=== PATIENT | female | born 1940 | race Caucasian/White ===

== ENCOUNTER 2016-09-14 13:19 | Emergency (ER) | payer OTHER ==
[~2016-09-14] VITALS: Ht 157.5 cm; Wt 61.7 kg
[~2016-09-14 13:19] MED LIST: BENAZEPRIL HYDR20 M1 PO; FOS10 PO; GOOD SENSE ASPI81 M3 PO; LEVAQUIN750 MG PO; LEVOTHROID PO; LEVOTHYROXINE0.1 M2 PO; LIPI10 PO; LOT10 PO; LOTENSIN10 MG PO; MEDDP PO; SIMVASTATIN20 M1 PO
[2016-09-14 15:18] LABS: BASOPHIL % 0.5 % (0-2); PLATELET COUNT 209 x10^3mcL (130-400)
[2016-09-14 15:20] LABS: RED CELL DISTRIBUTION WIDTH 14.8 % (11.5-14.5)
[2016-09-14 15:24] LABS: microscopic required? YES; urine erythrocyte TRACE (NEGATIVE)
[2016-09-14 15:27] LABS: CALCIUM 8.9 mg/dL (8.5-10.1); CARBON DIOXIDE 32.5 mmol/L (21-32); CHLORIDE SERUM 101 mmol/L (98-107); CREATININE SERUM 0.7 mg/dL (0.6-1.0); GLUCOSE SERUM 84 mg/dL (74-106); POTASSIUM SERUM 4.7 mmol/L (3.5-5.1); SODIUM SERUM 138 mmol/L (136-145)
[2016-09-14 15:38] LABS: ALBUMIN 3.6 g/dL (3.4-5.0); ALKALINE PHOSPHATASE 79 U/L (46-116); ALT/SGPT 13 U/L (14-59); AST/SGOT 15 U/L (15-37); BILIRUBIN TOTAL 0.29 mg/dL (0.20-1.00); TOTAL PROTEIN, SERUM 7.1 g/dL (6.4-8.2)
[2016-09-14 15:43] LABS: CK-MB < 0.5 ng/mL (0-3.6); CREATINE KINASE 66 U/L (26-192)
[2016-09-14 17:35] VITALS: BP 135/88
== END 2016-09-14 17:35 | disposition home or self-care (01) ==
LOC: ED 13:19
PROVIDERS: Emergency Medicine
DX: E03.9 Hypothyroidism, unspecified (principal); E78.00 Pure hypercholesterolemia, unspecified; I10 Essential (primary) hypertension; E07.9 Disorder of thyroid, unspecified; Z88.5 Allergy status to narcotic agent; Z79.899 Other long term (current) drug therapy
CPT/HCPCS: 83880; Q0092

== ENCOUNTER 2016-10-26 13:43 | Emergency (ER) | payer OTHER ==
[~2016-10-26] VITALS: Ht 149.9 cm; Wt 61.0 kg
[2016-10-26 16:35] LABS: UA SPECIFIC GRAVITY <=1.005 (1.005-1.035); microscopic required? YES; urine erythrocyte TRACE (NEGATIVE)
[2016-10-26 16:36] LABS: BASOPHIL % 0.4 % (0-2); PLATELET COUNT 189 x10^3mcL (130-400)
[2016-10-26 16:43] LABS: CALCIUM 9.1 mg/dL (8.5-10.1); CARBON DIOXIDE 31.1 mmol/L (21-32); CHLORIDE SERUM 97 mmol/L (98-107); CREATININE SERUM 0.7 mg/dL (0.6-1.0); GLUCOSE SERUM 98 mg/dL (74-106); POTASSIUM SERUM 4.3 mmol/L (3.5-5.1); SODIUM SERUM 134 mmol/L (136-145)
[2016-10-26 16:46] LABS: RED CELL DISTRIBUTION WIDTH 15.6 % (11.5-14.5)
[2016-10-26 16:56] LABS: ALBUMIN 3.4 g/dL (3.4-5.0); ALKALINE PHOSPHATASE 74 U/L (46-116); ALT/SGPT 17 U/L (14-59); AST/SGOT 20 U/L (15-37); BILIRUBIN TOTAL 0.37 mg/dL (0.20-1.00); LIPASE 173 IU/L (73-393); T4(THYROXINE) 11.6 ug/dL (4.7-13.3); TOTAL PROTEIN, SERUM 7.2 g/dL (6.4-8.2)
[2016-10-26 17:08] LABS: CK-MB 0.7 ng/mL (0-3.6)
[2016-10-26 17:34] VITALS: BP 116/60
== END 2016-10-26 18:15 | disposition home or self-care (01) ==
LOC: ED 13:43
PROVIDERS: Emergency Medicine
DX: R53.1 Weakness (principal); R31.29 Other microscopic hematuria; E03.9 Hypothyroidism, unspecified; I10 Essential (primary) hypertension; E78.00 Pure hypercholesterolemia, unspecified
CPT/HCPCS: J7613; J7644; Q0092

== ENCOUNTER 2017-04-01 18:40 | Observation (INO) | payer OTHER ==
[~2017-04-01] VITALS: Ht 149.9 cm; Wt 59.9 kg
[2017-04-01] MEDS ORDERED: LEVOTHYROXIN0.075 M2 PO (19:16)
[2017-04-01] MEDS ORDERED: BENAZEPRIL HYDR20 M1 PO (19:16)
[2017-04-01] MEDS ORDERED: LEVOXYL0.088 MG PO (19:16)
[2017-04-01] MEDS ORDERED: SIMVASTATIN20 M1 PO (19:17)
[2017-04-01] MEDS ORDERED: ATIVAN1 MG PO (19:17)
[2017-04-01 19:36] LABS: UA SPECIFIC GRAVITY <=1.005 (1.005-1.035); microscopic required? YES; urine erythrocyte TRACE (NEGATIVE)
[2017-04-01 19:50] LABS: BASOPHIL % 0.4 % (0-2); PLATELET COUNT 216 x10^3mcL (130-400)
[2017-04-01 19:51] LABS: RED CELL DISTRIBUTION WIDTH 16.7 % (11.5-14.5)
[2017-04-01 19:59] LABS: CALCIUM 9.1 mg/dL (8.5-10.1); CARBON DIOXIDE 29.8 mmol/L (21-32); CHLORIDE SERUM 92 mmol/L (98-107); CREATININE SERUM 0.7 mg/dL (0.6-1.0); GLUCOSE SERUM 135 mg/dL (74-106); POTASSIUM SERUM 3.9 mmol/L (3.5-5.1); SODIUM SERUM 131 mmol/L (136-145)
[2017-04-01 20:05] LABS: ALBUMIN 3.7 g/dL (3.4-5.0); ALKALINE PHOSPHATASE 92 U/L (46-116); ALT/SGPT 15 U/L (14-59); AST/SGOT 20 U/L (15-37); BILIRUBIN TOTAL 0.3 mg/dL (0.20-1.00); TOTAL PROTEIN, SERUM 8.2 g/dL (6.4-8.2)
[2017-04-01 21:42] VITALS: BP 155/86
[2017-04-01 21:45] VITALS: Ht 149.9 cm; Wt 59.9 kg
[2017-04-01 21:49] LABS: AMPHETAMINE QUAL UR NONE DETECTED (NEG <=1000)
[2017-04-01 21:53] LABS: MAGNESIUM 1.8 mg/dL (1.8-2.4)
[2017-04-01 21:57] LABS: T3 TOTAL 0.97 ng/mL
[2017-04-01 22:01] LABS: FREE T4 1.11 ng/dL (0.76-1.46); FREE THYROXINE INDEX 3.6 ug/dL (1.4-4.5); T4(THYROXINE) 11.9 ug/dL (4.7-13.3)
[2017-04-02 04:53] VITALS: BP 138/68
[2017-04-02 08:45] VITALS: BP 106/64
[2017-04-02] MEDS ORDERED: LAC PO (10:59)
[2017-04-02] MEDS ORDERED: LEVOFLOXACIN500 M1 PO (11:02)
[2017-04-02 12:37] VITALS: BP 106/64
[2017-04-02 13:02] VITALS: BP 106/69
[2017-04-02] MEDS ORDERED: PYRIDIUM100 MG PO (14:35)
== END 2017-04-02 15:11 | disposition home or self-care (01) | DRG 690 ==
LOC: ED 18:40 → DU 20:53
PROVIDERS: Emergency Medicine; Student in an Organized Health Care Education/Training Program; ADMIT Family Medicine Sports Medicine
DX: N39.0 Urinary tract infection, site not specified (principal); E87.1 Hypo-osmolality and hyponatremia; B96.20 Unspecified Escherichia coli [E. coli] as the cause of diseases classified elsewhere; R31.9 Hematuria, unspecified; I16.0 Hypertensive urgency; I10 Essential (primary) hypertension; K44.9 Diaphragmatic hernia without obstruction or gangrene; F41.9 Anxiety disorder, unspecified; E78.5 Hyperlipidemia, unspecified; E03.9 Hypothyroidism, unspecified; Z16.24 Resistance to multiple antibiotics
CPT/HCPCS: 83880; 84439; 94150; G0378; J0696; J1885; J2405; J3490; J7030; Q0092

== ENCOUNTER 2017-07-15 17:31 | Emergency (ER) | payer OTHER ==
[~2017-07-15] VITALS: Ht 149.9 cm; Wt 59.9 kg
[~2017-07-15 17:31] MED LIST changes: +ATIVAN1 MG PO; +LAC PO; +LEVOFLOXACIN500 M1 PO; +LEVOTHYROXIN0.075 M2 PO; +LEVOXYL0.088 MG PO; +PYRIDIUM100 MG PO
[2017-07-15 17:34] VITALS: Ht 149.9 cm; Wt 59.9 kg
[2017-07-15 20:07] VITALS: BP 133/76
== END 2017-07-15 20:07 | disposition home or self-care (01) ==
LOC: ED 17:31
DX: S93.401A Sprain of unspecified ligament of right ankle, initial encounter (principal); S40.011A Contusion of right shoulder, initial encounter; E05.80 Other thyrotoxicosis without thyrotoxic crisis or storm; I10 Essential (primary) hypertension; E78.00 Pure hypercholesterolemia, unspecified; Z88.5 Allergy status to narcotic agent; X50.1XXA Overexertion from prolonged static or awkward postures, initial encounter; Y93.89 Activity, other specified; Y92.89 Other specified places as the place of occurrence of the external cause; Y99.8 Other external cause status
CPT/HCPCS: J1885

== ENCOUNTER 2018-01-15 13:33 | Emergency (ER) | payer OTHER ==
[~2018-01-15] VITALS: Ht 149.9 cm; Wt 58.5 kg
[2018-01-15 13:49] VITALS: Ht 149.9 cm; Wt 58.5 kg
== END 2018-01-15 14:25 | disposition home or self-care (01) ==
LOC: ED 13:33
DX: B08.1 Molluscum contagiosum (principal); I10 Essential (primary) hypertension; E78.00 Pure hypercholesterolemia, unspecified

== ENCOUNTER 2018-02-21 10:44 | Observation (INO) | payer OTHER ==
[~2018-02-21] VITALS: Ht 149.9 cm; Wt 56.5 kg
[2018-02-21 11:48] LABS: BASOPHIL % 0.8 % (0-2); PLATELET COUNT 210 x10^3mcL (130-400); RED CELL DISTRIBUTION WIDTH 14.3 % (11.5-14.5)
[2018-02-21 11:59] LABS: CALCIUM 9.6 mg/dL (8.5-10.1); CARBON DIOXIDE 27.9 mmol/L (21-32); CHLORIDE SERUM 101 mmol/L (98-107); CREATININE SERUM 0.7 mg/dL (0.6-1.0); GLUCOSE SERUM 123 mg/dL (74-106); POTASSIUM SERUM 4.3 mmol/L (3.5-5.1); SODIUM SERUM 139 mmol/L (136-145)
[2018-02-21] MEDS ORDERED: SYNTHROID0.075 MG PO (13:17)
[2018-02-21] MEDS ORDERED: SYNTHROID0.088 MG PO (13:18)
[2018-02-21] MEDS ORDERED: AMLODIPINE BES2.5 M1 PO (13:18)
[2018-02-21 13:55] VITALS: BP 158/79
[2018-02-21 17:11] VITALS: BP 134/91
[2018-02-21 21:02] VITALS: BP 114/60
[2018-02-22 05:45] VITALS: BP 130/68
[2018-02-22 06:10] LABS: BASOPHIL % 0.6 % (0-2); PLATELET COUNT 197 x10^3mcL (130-400); RED CELL DISTRIBUTION WIDTH 14.4 % (11.5-14.5)
[2018-02-22 06:25] LABS: CALCIUM 9.1 mg/dL (8.5-10.1); CARBON DIOXIDE 26.5 mmol/L (21-32); CHLORIDE SERUM 107 mmol/L (98-107); CREATININE SERUM 0.8 mg/dL (0.6-1.0); GLUCOSE SERUM 95 mg/dL (74-106); SODIUM SERUM 142 mmol/L (136-145)
[2018-02-22 08:02] VITALS: BP 145/75
[2018-02-22 11:57] VITALS: BP 122/76
== END 2018-02-22 17:55 | disposition home or self-care (01) | DRG 305 ==
LOC: ED 10:44 → DU 12:34
PROVIDERS: Emergency Medicine; Internal Medicine
DX: I16.0 Hypertensive urgency (principal); I73.9 Peripheral vascular disease, unspecified; J44.9 Chronic obstructive pulmonary disease, unspecified; E78.5 Hyperlipidemia, unspecified; E03.9 Hypothyroidism, unspecified; F17.210 Nicotine dependence, cigarettes, uncomplicated
CPT/HCPCS: A9500; G0378; J1644; J1885; J2060; J2785; J3490; J7030; Q0092

== ENCOUNTER 2018-09-22 13:54 | Emergency (ER) | payer OTHER ==
[~2018-09-22] VITALS: Ht 149.9 cm; Wt 58.5 kg
[~2018-09-22 13:54] MED LIST changes: +AMLODIPINE BES2.5 M1 PO; +SYNTHROID0.075 MG PO; +SYNTHROID0.088 MG PO
[2018-09-22 14:06] VITALS: Ht 149.9 cm; Wt 58.5 kg
[2018-09-22 15:16] LABS: BASOPHIL % 0.6 % (0-2); PLATELET COUNT 226 x10^3mcL (130-400)
[2018-09-22 15:19] LABS: RED CELL DISTRIBUTION WIDTH 15.3 % (11.5-14.5)
[2018-09-22 15:38] LABS: microscopic required? YES; urine erythrocyte TRACE (NEGATIVE)
[2018-09-22 15:43] LABS: CALCIUM 9.1 mg/dL (8.5-10.1); CARBON DIOXIDE 26.9 mmol/L (21-32); CHLORIDE SERUM 94 mmol/L (98-107); CREATININE SERUM 0.7 mg/dL (0.6-1.0); GLUCOSE SERUM 95 mg/dL (74-106); POTASSIUM SERUM 3.8 mmol/L (3.5-5.1); SODIUM SERUM 132 mmol/L (136-145)
[2018-09-22 15:53] LABS: ALBUMIN 3.9 g/dL (3.4-5.0); ALKALINE PHOSPHATASE 89 U/L (46-116); ALT/SGPT 15 U/L (14-59); AST/SGOT 14 U/L (15-37); BILIRUBIN TOTAL 0.4 mg/dL (0.20-1.00); CHOLESTEROL 153 mg/dL (<200); HDL CHOLESTEROL 52 mg/dL (40-60)
[2018-09-22 16:17] LABS: TOTAL PROTEIN, SERUM 8.5 g/dL (6.4-8.2)
[2018-09-22 16:32] VITALS: BP 141/88
== END 2018-09-22 16:33 | disposition home or self-care (01) ==
LOC: ED 13:54
PROVIDERS: Emergency Medicine
DX: R53.1 Weakness (principal); E86.0 Dehydration; E87.1 Hypo-osmolality and hyponatremia; R39.15 Urgency of urination; I10 Essential (primary) hypertension; E78.00 Pure hypercholesterolemia, unspecified; F41.9 Anxiety disorder, unspecified; Z88.6 Allergy status to analgesic agent
CPT/HCPCS: J7030; Q0092

== ENCOUNTER 2019-02-27 14:29 | Emergency (ER) | payer OTHER ==
[~2019-02-27] VITALS: Ht 149.9 cm; Wt 58.5 kg
[~2019-02-27 14:29] MED LIST changes: +BENAZEPRIL HCL PO
[2019-02-27 14:47] VITALS: Ht 149.9 cm; Wt 58.5 kg
[2019-02-27 16:51] LABS: PLATELET COUNT 269 x10^3mcL (130-400)
[2019-02-27 16:54] LABS: RED CELL DISTRIBUTION WIDTH 16.5 % (11.5-14.5)
[2019-02-27 17:13] LABS: CALCIUM 9.3 mg/dL (8.5-10.1); CARBON DIOXIDE 32.8 mmol/L (21-32); CHLORIDE SERUM 99 mmol/L (98-107); CREATININE SERUM 0.6 mg/dL (0.6-1.0); GLUCOSE SERUM 95 mg/dL (74-106); POTASSIUM SERUM 4.4 mmol/L (3.5-5.1); SODIUM SERUM 137 mmol/L (136-145)
[2019-02-27 17:18] LABS: ALKALINE PHOSPHATASE 90 U/L (46-116); ALT/SGPT 11 U/L (14-59); AST/SGOT 16 U/L (15-37); BILIRUBIN TOTAL 0.43 mg/dL (0.20-1.00); TOTAL PROTEIN, SERUM 8.5 g/dL (6.4-8.2)
[2019-02-27 18:31] VITALS: BP 150/77
== END 2019-02-27 18:31 | disposition home or self-care (01) ==
LOC: ED 14:29
PROVIDERS: Emergency Medicine
DX: R53.1 Weakness (principal); R42 Dizziness and giddiness; F43.9 Reaction to severe stress, unspecified; I10 Essential (primary) hypertension; E78.00 Pure hypercholesterolemia, unspecified; F41.9 Anxiety disorder, unspecified; Z88.5 Allergy status to narcotic agent; F17.210 Nicotine dependence, cigarettes, uncomplicated
CPT/HCPCS: 36415; 99406

== ENCOUNTER 2019-03-10 09:23 | Inpatient (IN) | payer OTHER ==
[~2019-03-10] VITALS: Ht 149.9 cm; Wt 56.2 kg
[2019-03-10 09:26] VITALS: Ht 149.9 cm; Wt 56.2 kg
[2019-03-10 10:12] LABS: BASOPHIL % 0.7 % (0-2); PLATELET COUNT 225 x10^3mcL (130-400)
[2019-03-10 10:15] LABS: RED CELL DISTRIBUTION WIDTH 17.4 % (11.5-14.5)
[2019-03-10 10:34] LABS: UA SPECIFIC GRAVITY 1.015 (1.005-1.035); microscopic required? YES; urine erythrocyte 1+ (NEGATIVE)
[2019-03-10 11:07] LABS: AMPHETAMINE QUAL UR NONE DETECTED (See below)
[2019-03-10 11:42] LABS: CARBON DIOXIDE 29.9 mmol/L (21-32); CHLORIDE SERUM 103 mmol/L (98-107); CREATININE SERUM 0.8 mg/dL (0.6-1.0); GLUCOSE SERUM 114 mg/dL (74-106); POTASSIUM SERUM 3.8 mmol/L (3.5-5.1); SODIUM SERUM 141 mmol/L (136-145)
[2019-03-10 11:54] LABS: ALBUMIN 3.8 g/dL (3.4-5.0); ALKALINE PHOSPHATASE 98 U/L (46-116); ALT/SGPT 15 U/L (14-59); AMYLASE 83 U/L (25-115); AST/SGOT 13 U/L (15-37); BILIRUBIN TOTAL 0.5 mg/dL (0.20-1.00); CHOLESTEROL 181 mg/dL (<200); HDL CHOLESTEROL 51 mg/dL (40-60); LIPASE 191 IU/L (73-393); T4(THYROXINE) 11.1 ug/dL (4.7-13.3); TOTAL PROTEIN, SERUM 7.7 g/dL (6.4-8.2)
[2019-03-10 14:32] VITALS: BP 126/76
[2019-03-10] MEDS ORDERED: BENADRYL ALLERG25 M1 PO (16:24)
[2019-03-10] MEDS ORDERED: BENAZEPRIL HYDR40 M1 PO (16:25)
[2019-03-10 16:26] VITALS: BP 155/81
[2019-03-10 20:58] VITALS: BP 115/63
[2019-03-11 04:02] VITALS: BP 113/55
[2019-03-11 07:01] LABS: CALCIUM 8.7 mg/dL (8.5-10.1); CHLORIDE SERUM 103 mmol/L (98-107); CREATININE SERUM 0.7 mg/dL (0.6-1.0); GLUCOSE SERUM 143 mg/dL (74-106); MAGNESIUM 1.7 mg/dL (1.8-2.4); POTASSIUM SERUM 3.9 mmol/L (3.5-5.1); SODIUM SERUM 140 mmol/L (136-145)
[2019-03-11 07:08] LABS: PLATELET COUNT 196 x10^3mcL (130-400)
[2019-03-11 07:18] LABS: BASOPHIL % 0 % (0-2); RED CELL DISTRIBUTION WIDTH 17.1 % (11.5-14.5)
[2019-03-11 09:08] VITALS: BP 131/67
[2019-03-11 14:11] VITALS: BP 114/57
[2019-03-11 17:09] VITALS: BP 116/56
[2019-03-11 21:09] VITALS: BP 106/49
[2019-03-12 05:05] VITALS: BP 143/72
[2019-03-12 06:25] LABS: PLATELET COUNT 204 x10^3mcL (130-400)
[2019-03-12 06:39] LABS: CALCIUM 8.8 mg/dL (8.5-10.1); CARBON DIOXIDE 27.5 mmol/L (21-32); CHLORIDE SERUM 104 mmol/L (98-107); CREATININE SERUM 0.8 mg/dL (0.6-1.0); GLUCOSE SERUM 122 mg/dL (74-106); POTASSIUM SERUM 4.7 mmol/L (3.5-5.1); SODIUM SERUM 141 mmol/L (136-145)
[2019-03-12 07:42] LABS: BASOPHIL % 0 % (0-2); RED CELL DISTRIBUTION WIDTH 17.6 % (11.5-14.5)
[2019-03-12 08:27] VITALS: BP 128/70
[2019-03-12 12:42] VITALS: BP 147/86
[2019-03-12 16:41] VITALS: BP 105/53
[2019-03-12] MEDS ORDERED: LEVAQUIN750 MG PO (16:52)
== END 2019-03-12 17:50 | disposition home health service (06) | DRG 189 ==
LOC: ED 09:23 → DU 14:38
PROVIDERS: Emergency Medicine; ADMIT Internal Medicine Pulmonary Disease
DX: J96.01 Acute respiratory failure with hypoxia (principal); J18.0 Bronchopneumonia, unspecified organism; N39.0 Urinary tract infection, site not specified; K12.2 Cellulitis and abscess of mouth; E03.9 Hypothyroidism, unspecified; I10 Essential (primary) hypertension; J44.9 Chronic obstructive pulmonary disease, unspecified; E78.5 Hyperlipidemia, unspecified; F17.210 Nicotine dependence, cigarettes, uncomplicated; Z68.26 Body mass index [BMI] 26.0-26.9, adult
CPT/HCPCS: 31720; 36600; 82962; 83880; 90658; 94150; 99406; G0378; J0696; J1100; J1200; J1644; J1956; J3490; J7030; J7040; J7620; J7626; Q0092; Q9967

== ENCOUNTER 2019-03-14 01:22 | Inpatient (IN) | payer OTHER ==
[~2019-03-14] VITALS: Ht 149.9 cm; Wt 58.1 kg
[2019-03-14] VITALS (7 sets, daily range): BP systolic 99–130; BP diastolic 45–71; Ht 149.9 cm; Wt 58.1 kg
[~2019-03-14 01:22] MED LIST changes: +BENADRYL ALLERG25 M1 PO; +BENAZEPRIL HYDR40 M1 PO
[2019-03-14 02:20] LABS: CALCIUM 8.7 mg/dL (8.5-10.1); CARBON DIOXIDE 25.9 mmol/L (21-32); CHLORIDE SERUM 99 mmol/L (98-107); CREATININE SERUM 0.6 mg/dL (0.6-1.0); GLUCOSE SERUM 113 mg/dL (74-106); POTASSIUM SERUM 4.4 mmol/L (3.5-5.1); SODIUM SERUM 133 mmol/L (136-145)
[2019-03-14 02:21] LABS: BASOPHIL % 0.1 % (0-2)
[2019-03-14 02:22] LABS: PLATELET COUNT 103 x10^3mcL (130-400); RED CELL DISTRIBUTION WIDTH 17.1 % (11.5-14.5)
[2019-03-14 02:24] LABS: ALBUMIN 3.6 g/dL (3.4-5.0); ALKALINE PHOSPHATASE 86 U/L (46-116); ALT/SGPT 14 U/L (14-59); AST/SGOT 18 U/L (15-37); BILIRUBIN TOTAL 0.75 mg/dL (0.20-1.00); TOTAL PROTEIN, SERUM 7.6 g/dL (6.4-8.2)
[2019-03-14 02:35] LABS: CK-MB 1.8 ng/mL (0-3.6)
[2019-03-14 11:34] LABS: AMPHETAMINE QUAL UR NONE DETECTED (See below)
[2019-03-14 11:57] LABS: UA SPECIFIC GRAVITY <=1.005 (1.005-1.035); microscopic required? YES; urine erythrocyte TRACE (NEGATIVE)
[2019-03-15 04:37] VITALS: BP 128/72
[2019-03-15 06:35] LABS: CALCIUM 8.6 mg/dL (8.5-10.1); CHLORIDE SERUM 100 mmol/L (98-107); CREATININE SERUM 0.7 mg/dL (0.6-1.0); GLUCOSE SERUM 171 mg/dL (74-106); MAGNESIUM 2.3 mg/dL (1.8-2.4); POTASSIUM SERUM 4.5 mmol/L (3.5-5.1); SODIUM SERUM 135 mmol/L (136-145)
[2019-03-15 06:49] LABS: PLATELET COUNT 215 x10^3mcL (130-400)
[2019-03-15 07:40] LABS: BASOPHIL % 0 % (0-2); RED CELL DISTRIBUTION WIDTH 16.6 % (11.5-14.5)
[2019-03-15 08:49] VITALS: BP 155/67
[2019-03-15 12:24] VITALS: BP 102/54
[2019-03-15 17:05] VITALS: BP 115/60
[2019-03-15 21:03] VITALS: BP 104/52
[2019-03-16 05:20] VITALS: BP 97/50
[2019-03-16 07:08] LABS: PLATELET COUNT 219 x10^3mcL (130-400)
[2019-03-16 07:09] LABS: BASOPHIL % 0 % (0-2); RED CELL DISTRIBUTION WIDTH 17.2 % (11.5-14.5)
[2019-03-16 07:33] LABS: CALCIUM 8.6 mg/dL (8.5-10.1); CARBON DIOXIDE 28.5 mmol/L (21-32); CHLORIDE SERUM 99 mmol/L (98-107); CREATININE SERUM 0.7 mg/dL (0.6-1.0); GLUCOSE SERUM 174 mg/dL (74-106); MAGNESIUM 2.3 mg/dL (1.8-2.4); POTASSIUM SERUM 4.6 mmol/L (3.5-5.1); SODIUM SERUM 134 mmol/L (136-145)
[2019-03-16 08:17] VITALS: BP 106/55
[2019-03-16 11:40] VITALS: BP 110/58
[2019-03-16 16:11] VITALS: BP 111/68
[2019-03-16 17:25] VITALS: BP 111/68
== END 2019-03-16 18:13 | disposition home health service (06) | DRG 189 ==
LOC: ED 01:22 → DU 05:08
PROVIDERS: Emergency Medicine; ADMIT Internal Medicine Pulmonary Disease
DX: J96.01 Acute respiratory failure with hypoxia (principal); J18.0 Bronchopneumonia, unspecified organism; J44.1 Chronic obstructive pulmonary disease with (acute) exacerbation; N39.0 Urinary tract infection, site not specified; I10 Essential (primary) hypertension; F41.9 Anxiety disorder, unspecified; D69.59 Other secondary thrombocytopenia; E03.9 Hypothyroidism, unspecified; F17.210 Nicotine dependence, cigarettes, uncomplicated; Z68.25 Body mass index [BMI] 25.0-25.9, adult
CPT/HCPCS: 36600; G0378; J1956; J2920; J2930; J3010; J7050; J7620; J7626; Q0092

== ENCOUNTER 2019-03-26 09:47 | Observation (INO) | payer OTHER ==
[~2019-03-26] VITALS: Ht 149.9 cm; Wt 55.5 kg
--- NOTE | 2019-03-26 09:55 | NUR ---
PT HERE FOR 10/10 BACK PAIN NON INJURY OR TRAUMA. STARTED YESTERDAY AT NOON. LAST WEEK DX WITH PNA. UPON ARRIVAL PT STILL HAS / UPON ARRIVAL. PT ARRIVES ALERT AND ORIENTED WITH NO DISTRESS.VSS. PLACED IN BED AND CONNECTED TO UNIT REACTOR OPERATOR. EKG PERFORMED BY EMS SAMPLE CARD MAKER. AWAITING MD MUNSON
--- NOTE | 2019-03-26 10:05 | NUR ---
PT HAS PROD COUGH WITH YELLOW SPUTUM. HAS CRACKLES IN BASES AND HAS SLIGHT SOB UPON ARRIVAL WITH 02 SAT 98 ONCE PLACED ON 02 2L NC
--- NOTE | 2019-03-26 10:41 | NUR ---
PT LEFT FOR XRAY
--- NOTE | 2019-03-26 11:06 | NUR ---
PT BACK FROM XR VIA [facility]
--- NOTE | 2019-03-26 12:10 | NUR ---
pt back from ct scan via [facility]
--- NOTE | 2019-03-26 13:51 | NUR ---
PT SLEEPING AT THIS TIME AND VSS. NO APPARANT DISTRESS OR PAIN AND WILL CONTINUE TO MONITOR
[2019-03-26] MEDS ORDERED: TESSALON PERLE100 MG PO (14:13)
[2019-03-26] MEDS ORDERED: PREDNISONE20 MG PO (14:13)
--- NOTE | 2019-03-26 14:19 | NUR ---
REPORT CALLED TO LEXIE DOWELL RN
--- NOTE | 2019-03-26 15:10 | NUR ---
PT WAS RECEIVED BY PRIMARY NURSE LEXIE FROM ED VIA [employer] AT 1452H. PT CAME IN DUE TO BACK PAIN SINCE YESTERDAY. AAOX4. DENIES HEADACHE/DIZZINESS. ABLE TO FOLLOW COMMANDS. NO SOB NOTED, LUNG SOUNDS CTA. ON 2LPM/NC, O2 SAT=96%. STATED THAT SHE HAS PRODUCTIVE COUGH, ABLE TO EXPECTORATE WHITE PHLEGM. DENIES ABDOMINAL DISCOMFORT. BOWEL SOUNDS ACTIVE. VOIDS. IV SITE ON THE RIGHT HAND GAUGE 22 IS PATENT AND INTACT. ASSISTED PT TO AMBULATE IN THE BATHROOM WITH MINIMAL ASSIST. PT STATED THAT HER BACK PAIN IS WORSE ON MOVEMENT AND DEEP BREATHING. SIDE RAILS UPX2. CALL LIGHT ON REACH. ENDORSED TO PRIMARY NURSE LEXIE FOR CONTINUITY OF CARE
[2019-03-26 15:26] VITALS: BP 135/61
[2019-03-26 15:30] VITALS: Ht 149.9 cm; Wt 55.5 kg
--- NOTE | 2019-03-26 16:54 | NUR ---
PT C/O BACK PAIN 5/10, MEDICATED PER EMAR. WILL CONTINUE TO MONITOR.
[2019-03-26 18:10] VITALS: BP 105/59
--- NOTE | 2019-03-26 18:24 | NUR ---
PT SITTING IN BED, FAMILY AT BEDSIDE. STATED TYLENOL HELPED HER BACK PAIN. DENIES ANY DISCOMFORT AT THIS TIME. BREATHING EVEN AND UNLABORED ON RA, NO ACUTE RESPT DISTRESS OR SOB NOTED, DENIES ANY CP. IV TO THE RIGHT HAND/ HEPLOCKED/ NO REDNESS OR SWELLING NOTED. TOLERATED 100% DINNER. WILL ENDORSE TO INCOMING RN.
--- NOTE | 2019-03-26 18:37 | NUR ---
PT DAUGHTER ENDER CALLED AND UPDATE WAS GIVEN. CALL LIGHT IN REACH. BED INLOW POSITION, BY NURSING STATION. WILL ENDORSE TO INCOMING RN.
--- NOTE | 2019-03-26 19:20 | NUR ---
RECEIVED REPORT FROM AM NURSE. PT LAYING DOWN IN BED, PT AAOX4, ABLE TO MAKE NEEDS KNOWN. MED-SURG, DENIES CP/PRESSURE AT THIS TIME. PALPABLE PULSES TO ALL EXTREMETIES. NO EDEMA NOTED. LUNG SOUNDS CTA, BREATHING EVEN AND UNLABORED ON 2L NC. NO SOB NOTED. O2 SAT 97%. ABD SOFT ANF NONDISTENDED, ACTIVE BS X4 QUAD. DENIES N/V/D, VOIDS FREELY, BRP. GENERALIZED WEAKNESS, ABD WITH WALKER. ECHYMOSIS TO BUE. IV TO RH FLUSHING WELL. SITE WNL. NO ACUTE DISTRESS NOTED. DENIES ANY PAIN AT THIS TIME. BED AT LOWEST SETTING. SIDE RAILS X2 UP.CALL LIGHT WITHING REACH. WILL CONT TO MONITOR.
[2019-03-26 20:37] VITALS: BP 96/60
--- NOTE | 2019-03-26 22:05 | NUR ---
PT C/O ANXIETY, MEDICATED WITH PRN XANAX PER MAR. NO ACUTE DISTRESS NOTED. WILL CONT TO MONITOR.
--- NOTE | 2019-03-27 00:04 | NUR ---
PT LAYING DOWN IN BED WITH EYES CLOSED AND HOB ELEVATED. BREATHING EVEN AND UNLABORED ON 2L NC. NO ACUTE DISTREE NOTED. BED AT LOWEST SETTINGS. SIDE RAILS X2 UP. CALL LIGHT WITHING REACH. WILL CONT TO MONITOR.
[2019-03-27 05:11] VITALS: BP 109/63
--- NOTE | 2019-03-27 06:16 | NUR ---
PT SLEPT AT INTERVALS THROUGHT THE NIGHT, BREATHING EVEN AND UNLABORED ON 2L NC. PT C/O 09/06 BACK PAIN, MEDICATED WITH PRN TYLENOL PER JUL. NO SIGNIFICANT CHANGES DURING SHIFT. ALL NEEDS ASSESSED AND ATTENDED TO. NO ACUTE DISTRESS NOTED. BED AT LOWEST SETTING. SIDE RAILS X2 UP. CALL LIGHT WITHING REACH. WILL ENDORSE CARE TO AM NURSE.
--- NOTE | 2019-03-27 07:03 | NUR ---
ARE ENDORSE TO CHARGE NURSE WHITNEY.
--- NOTE | 2019-03-27 07:30 | NUR ---
ASSUMED CONTINUITY OF CARE. NO SIGNS AND SYMPTOMS OF ACUTE DISTRESS NOTICED. KEEP COMFORTABLE ON BED. EXPLAINED DIAGNOSIS, PAIN MANAGEMENT TEACHING, PLAN OF CARE, USE OF CALL LIGHT/BED/TV/BATHROOM. VERBALIZED UDNERSTANDING. CALL LIGHT WITHIN REACH.
[2019-03-27 08:52] LABS: CALCIUM 8.7 mg/dL (8.5-10.1); CARBON DIOXIDE 26.3 mmol/L (21-32); CHLORIDE SERUM 95 mmol/L (98-107); CREATININE SERUM 0.9 mg/dL (0.6-1.0); GLUCOSE SERUM 177 mg/dL (74-106); POTASSIUM SERUM 5.1 mmol/L (3.5-5.1); SODIUM SERUM 129 mmol/L (136-145)
[2019-03-27 08:58] LABS: BASOPHIL % 0.5 % (0-2); PLATELET COUNT 230 x10^3mcL (130-400)
[2019-03-27 09:20] LABS: RED CELL DISTRIBUTION WIDTH 16.8 % (11.5-14.5)
[2019-03-27 09:30] VITALS: BP 132/76
--- NOTE | 2019-03-27 11:42 | NUR ---
DR. SILVER CAME IN, INFORMED OF PT. LATEST AM LAB RESULTS ESPECIALLY SODIUM 129, AND ALSO INFORMED CHARGE NURSE -CARLA.
--- NOTE | 2019-03-27 12:10 | NUR ---
I HAVE REVIEWED THE DATA COLLECTION BY SAUL (NAME): ENTERED ON (DATE/TIME):03/27/2019 @ 1210 I CONCUR WITH THE DATA AND ANY EXCEPTIONS OR COMMENTS ARE LISTED BELOW: CORA MARQUEZ LVN.
--- NOTE | 2019-03-27 12:10 | NUR ---
WENT TO CHECK THE PATIENT WAS REPORTED BY ANOTHER NURSE THAT PATIENT IS COMPLAINING OF DIZZINESS. B/P-144/86 (96) MT-92 AND SAT.84+85 AT ROOM. PATIENT SITTING AT THE EDGE OF THE BED.ASKED THE PATIENT IF THIS IS THE FIRST TIME SHE GET UP AND SHE STATED THAT SHE'S UP THIS MORNING. NO C/O OF DIZZINESS.PLACE ON O2 2L N/C AND SAT.89-90% ASSISTED TO LAY ON BED. HERE AND MADE AWARE OF THE ABOVE AND W/ ORDER.
[2019-03-27 12:56] VITALS: BP 138/72
--- NOTE | 2019-03-27 13:55 | NUR ---
WENT TO BATHROOM WITH ASSISTANCE FROM PT. DAUGHTER. TOLERATED WELL. NO C/O DIZZINESS. NO SOB, NOTED. CONTINUE MONITORING.
[2019-03-27 15:41] VITALS: BP 138/72
--- NOTE | 2019-03-27 16:55 | NUR ---
D/C VIA WHEELCHAIR WITH ASSISTANCE FROM NAIDA PAIGE, PT. WILL BE BRING DOWNSTAIR WITH FAMILY MEMBER WAITING AT FRONT LOBBY. NO SOB, NOTED. 2 SKIN BRUISE ON RIGHT FOREARM, NOTED AND PHOTO TAKEN AT 1600. NO C/O PAIN. IN STABLE CONDITION. INFORMED CHARGE NURSE ABOUT PT. D/C.
== END 2019-03-27 16:25 | disposition home health service (06) | DRG 544 ==
LOC: ED 09:47 → MU 13:54
PROVIDERS: ADMIT Internal Medicine Pulmonary Disease
DX: M48.54XA Collapsed vertebra, not elsewhere classified, thoracic region, initial encounter for fracture (principal); E03.9 Hypothyroidism, unspecified; E78.5 Hyperlipidemia, unspecified
CPT/HCPCS: 97116-GP; G0378; J1885; J7030; J7512; J8597

== ENCOUNTER 2019-05-18 10:46 | Emergency (ER) | payer OTHER ==
[~2019-05-18] VITALS: Ht 147.3 cm; Wt 45.4 kg
[~2019-05-18 10:46] MED LIST changes: +PREDNISONE20 MG PO; +TESSALON PERLE100 MG PO
[2019-05-18 11:03] VITALS: Ht 147.3 cm; Wt 45.4 kg
[2019-05-18 12:56] LABS: BASOPHIL % 0.3 % (0-2); PLATELET COUNT 230 x10^3mcL (130-400)
[2019-05-18 13:05] LABS: CALCIUM 9.1 mg/dL (8.5-10.1); CHLORIDE SERUM 100 mmol/L (98-107); CREATININE SERUM 0.8 mg/dL (0.6-1.0); GLUCOSE SERUM 97 mg/dL (74-106); POTASSIUM SERUM 4.3 mmol/L (3.5-5.1); SODIUM SERUM 135 mmol/L (136-145)
[2019-05-18 13:09] LABS: ALKALINE PHOSPHATASE 97 U/L (46-116); ALT/SGPT 17 U/L (14-59); AST/SGOT 14 U/L (15-37); BILIRUBIN TOTAL 0.47 mg/dL (0.20-1.00); CHOLESTEROL 148 mg/dL (<200); HDL CHOLESTEROL 49 mg/dL (40-60); LIPASE 89 IU/L (73-393); TOTAL PROTEIN, SERUM 7.1 g/dL (6.4-8.2); TRIGLYCERIDES 120 mg/dL (<150)
[2019-05-18 13:10] LABS: ALBUMIN 3.1 g/dL (3.4-5.0)
[2019-05-18 13:32] LABS: T3 TOTAL 0.82 ng/mL
[2019-05-18 14:19] LABS: UA SPECIFIC GRAVITY <=1.005 (1.005-1.035); microscopic required? YES; urine erythrocyte 1+ (NEGATIVE)
[2019-05-18 14:21] LABS: FREE T4 1.42 ng/dL (0.76-1.46); T4(THYROXINE) 11.7 ug/dL (4.7-13.3)
[2019-05-18 15:15] VITALS: BP 164/69
== END 2019-05-18 15:15 | disposition home or self-care (01) ==
LOC: ED 10:46
PROVIDERS: Specialist
DX: N39.0 Urinary tract infection, site not specified (principal); Z87.311 Personal history of (healed) other pathological fracture; I10 Essential (primary) hypertension; Z88.6 Allergy status to analgesic agent; E78.00 Pure hypercholesterolemia, unspecified; F41.9 Anxiety disorder, unspecified; F17.210 Nicotine dependence, cigarettes, uncomplicated; Z71.6 Tobacco abuse counseling
CPT/HCPCS: 83880; 84439; 87804; 99406; J0696; J1200; J1885; J2405; J3010; J7060; Q0092; Q0162

== ENCOUNTER 2019-05-21 13:15 | Observation (INO) | payer OTHER ==
[~2019-05-21] VITALS: Ht 149.9 cm; Wt 57.3 kg
[~2019-05-21 13:15] MED LIST changes: -PREDNISONE20 MG PO
[2019-05-21 15:36] LABS: BASOPHIL % 0.2 % (0-2); PLATELET COUNT 285 x10^3mcL (130-400); RED CELL DISTRIBUTION WIDTH 12.9 % (11.5-14.5)
[2019-05-21 15:52] LABS: CALCIUM 8.9 mg/dL (8.5-10.1); CARBON DIOXIDE 28.1 mmol/L (21-32); CHLORIDE SERUM 95 mmol/L (98-107); CREATININE SERUM 0.8 mg/dL (0.6-1.0); GLUCOSE SERUM 121 mg/dL (74-106); POTASSIUM SERUM 3.5 mmol/L (3.5-5.1); SODIUM SERUM 133 mmol/L (136-145)
[2019-05-21 15:57] LABS: ALBUMIN 3.5 g/dL (3.4-5.0); ALKALINE PHOSPHATASE 93 U/L (46-116); ALT/SGPT 19 U/L (14-59); AST/SGOT 20 U/L (15-37); BILIRUBIN TOTAL 0.4 mg/dL (0.20-1.00); CHOLESTEROL 143 mg/dL (<200); HDL CHOLESTEROL 53 mg/dL (40-60); TOTAL PROTEIN, SERUM 7.8 g/dL (6.4-8.2)
[2019-05-21 17:35] LABS: microscopic required? YES; urine erythrocyte TRACE (NEGATIVE)
[2019-05-21 20:32] VITALS: BP 149/90
[2019-05-21 20:34] VITALS: Ht 149.9 cm; Wt 57.3 kg
[2019-05-22 05:35] VITALS: BP 131/68
[2019-05-22 06:32] LABS: BASOPHIL % 0.7 % (0-2); PLATELET COUNT 241 x10^3mcL (130-400)
[2019-05-22 07:52] LABS: ALKALINE PHOSPHATASE 78 U/L (46-116); ALT/SGPT 17 U/L (14-59); AST/SGOT 17 U/L (15-37); BILIRUBIN TOTAL 0.4 mg/dL (0.20-1.00); CALCIUM 8.2 mg/dL (8.5-10.1); CARBON DIOXIDE 28.4 mmol/L (21-32); CHLORIDE SERUM 102 mmol/L (98-107); CREATININE SERUM 0.7 mg/dL (0.6-1.0); GLUCOSE SERUM 87 mg/dL (74-106); MAGNESIUM 2.3 mg/dL (1.8-2.4); POTASSIUM SERUM 4.7 mmol/L (3.5-5.1); SODIUM SERUM 137 mmol/L (136-145); TOTAL PROTEIN, SERUM 6.3 g/dL (6.4-8.2)
[2019-05-22 07:57] LABS: ALBUMIN 2.8 g/dL (3.4-5.0)
[2019-05-22 09:14] VITALS: BP 129/63
[2019-05-22 13:25] VITALS: BP 151/85
[2019-05-22 16:28] VITALS: BP 139/70
[2019-05-22] MEDS ORDERED: PROTONIX40 MG PO (17:00)
[2019-05-22] MEDS ORDERED: KEFLEX500 M1 PO (17:06)
[2019-05-22] MEDS ORDERED: ULT50 PO (17:06)
[2019-05-22] MEDS ORDERED: PREDNISONE20 MG PO (17:12)
[2019-05-22 17:13] VITALS: BP 139/70
== END 2019-05-22 17:53 | disposition home or self-care (01) ==
LOC: ED 13:15 → MU 19:17
PROVIDERS: Emergency Medicine; ADMIT Internal Medicine Pulmonary Disease
DX: K29.70 Gastritis, unspecified, without bleeding (principal); E86.9 Volume depletion, unspecified; G89.29 Other chronic pain; M54.9 Dorsalgia, unspecified; N39.0 Urinary tract infection, site not specified; I10 Essential (primary) hypertension; E03.9 Hypothyroidism, unspecified; E78.5 Hyperlipidemia, unspecified; F41.9 Anxiety disorder, unspecified; F17.210 Nicotine dependence, cigarettes, uncomplicated
CPT/HCPCS: C9113; G0378; J2405; J3010; J3490; J7030; J7120; Q0092